=== PATIENT | female | born 1995 | race Caucasian/White ===

== ENCOUNTER 2019-02-08 17:01 | Emergency (ER) | payer OTHER ==
[~2019-02-08] VITALS: Ht 175.3 cm; Wt 108.9 kg
[2019-02-08 17:14] VITALS: BP 121/71
[2019-02-08] MEDS ORDERED: CYCL10TA2 PO (17:53)
[2019-02-08] MEDS ORDERED: HYDR-3164 PO (17:53)
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
== END 2019-02-08 18:23 | disposition home or self-care (01) ==
LOC: ER 17:01
DX: S13.9XXA Sprain of joints and ligaments of unspecified parts of neck, initial encounter (principal); R51 Headache; F17.210 Nicotine dependence, cigarettes, uncomplicated; V49.49XA Driver injured in collision with other motor vehicles in traffic accident, initial encounter; Y93.89 Activity, other specified; Y92.488 Other paved roadways as the place of occurrence of the external cause; Y99.8 Other external cause status
CPT/HCPCS: 99284